=== PATIENT | male | born 1950 | race Caucasian/White ===

== ENCOUNTER 2020-02-01 06:54 | Outpatient (NON) | payer OTHER, MEDICARE, SELFPAY ==
[2020-02-01 19:55] LABS: SARS-CoV-2 RNA PCR Negative
== END 2020-02-01 06:55 ==
DX: R68.89 Other general symptoms and signs (principal); Z20.828 Contact with and (suspected) exposure to other viral communicable diseases
CPT/HCPCS: 87635; C9803; U0003

== ENCOUNTER 2020-08-30 16:10 | Emergency (ER) | payer MEDICARE, SELFPAY ==
[2020-08-30 16:19] VITALS: BP 122/76; PULSE 71; RESP 16; TEMP 37.3; O2SAT 97
--- NOTE | 2020-08-30 16:38 | ED.LOWEXIN ---
HPI - Extremity Injury (Lower) General Chief Complaint: Extremity Injury, Lower Stated Complaint: lt foot pain Source: patient and RN notes reviewed Mode of arrival: ambulatory History of Present Illness HPI Narrative: This is a 69-year-old male that presented to urgent care status post nail puncture wound to his left foot. According to patient he was walking in his driveway and stepped on a nail that went completely through his shoe. Patient does report of slight tenderness to the site he is up-to-date with his tetanus shot. The patient denies SOB, CP, palpitation, extremity numbness, lightheadedness, dizziness, constipation, diarrhea, chills, or fever. Positive for sensations and no neurovascular deficiencies to the affected foot. Related Data Home Medications Medication Instructions Recorded Confirmed amlodipine 08/30/20 atorvastatin 08/30/20 carvedilol 08/30/20 hydrochlorothiazide 08/30/20 rivaroxaban [Xarelto] mg 08/30/20 tamsulosin mg PO 08/30/20 Allergies Allergy/AdvReac Type Severity Reaction Status Date / Time lisinopril Allergy Swelling Verified 08/30/20 16:19 Review of Systems Review of Systems: Narrative: A 14 organ system Review of Systems was performed and pertinent positives included in the HPI, otherwise remaining ROS is negative. All systems reviewed & are unremarkable except as noted in HPI and below PMFSH Family History Family History (Updated 08/30/20 @ 16:41 by JONATHON BarthP-C) Other Family history non-contributory Exam Narrative: Exam Narrative: GENERAL: This is a well-nourished, well-developed patient, in no apparent distress. HEAD: normocephalic, atraumatic. EYES: PERRL. Sclera clear/white. Vision is grossly intact. EARS: External ears normal, auditory canals clear and without drainage, TMs normal without perforation. Hearing grossly intact. NOSE: External nose normal with no obvious nasal discharge, nares without redness, no rhinorrhea. THROAT: Mucous membranes moist, posterior pharynx clear. NECK: Neck supple, non-tender without lymphadenopathy, masses or thyromegaly. CARDIOVASCULAR: Regular rate and rhythm without murmurs, gallops, or rubs. RESPIRATORY: Clear to auscultation. Breath sounds equal bilaterally. No wheezes, rales, or rhonchi. GASTROINTESTINAL: Abdomen soft, non-tender, nondistended. Bowel sounds are active. No hepato-splenomegaly, or palpable masses. No guarding. SKIN: warm, intact with no suspicious lesions or rash, good texture and turgor. NEURO: awake, alert, and oriented to person, place and time. There were no obvious focal neurologic abnormalities. Steady gait EXTREMITIES: Normal range of motion. No edema. No calf tenderness. Negative Homans sign bilaterally. Small pinpoint puncture wound to the ball of foot, tender to touch, sensations positive BACK: Nontender without deformity or crepitance. No flank tenderness. Course Course Emergency Course: Clean foot applied Betadine and triple antibiotic ointment and wrapped with gauze in wrap Vital Signs Vital signs: Vital Signs Temperature 99.1 F 08/30/20 16:19 Pulse Rate 71 08/30/20 16:19 Respiratory Rate 16 08/30/20 16:19 Blood Pressure 122/76 08/30/20 16:19 Pulse Oximetry 97 08/30/20 16:19 Temperature 99.1 F 08/30/20 16:19 Pulse Rate 71 08/30/20 16:19 Respiratory Rate 16 08/30/20 16:19 Blood Pressure 122/76 08/30/20 16:19 Pulse Oximetry 97 08/30/20 16:19 Discharge Plan Discharge Clinical Impression: Puncture wound of skin from metal nail Patient Disposition: Home, Self-Care Condition: Stable Instructions: Antibiotic Form, Puncture Wound in the Foot (ED) Additional Instructions: 1. Follow up with your provider within 1-2 weeks 2. Take prescription medication as ordered Notify your provider of any signs and symptoms of infection: Fever Foul Odor Discharge Heat at the Site: Increase in Pain: Pus Redness and Swelling Expand
== END 2020-08-30 16:43 | disposition home or self-care (01) ==
PROVIDERS: Emergency Provider Nurse Practitioner; PCP Internal Medicine
DX: S91.332A Puncture wound without foreign body, left foot, initial encounter (principal); W45.0XXA Nail entering through skin, initial encounter
CPT/HCPCS: 99212; G0463

== ENCOUNTER 2023-01-17 08:21 | Emergency (ER) | payer MEDICARE, SELFPAY ==
--- NOTE | ~2023-01-17 | XR_ITS ---
EXAMINATION: XR knee LT 3V DATE: 01/17/2023 09:09 INDICATION: Left knee pain TECHNIQUE: Three views of the left knee were obtained. COMPARISON: None. FINDINGS: There is tricompartmental osteoarthritis, severe in the lateral compartment, moderate in th e patellofemoral compartment, and mild in the medial compartment. No fracture is identified. There is a moderate to large knee joint effusion. Soft tissues are unremarkable. IMPRESSION: 1. Osteoarthritis and knee joint effusion without acute osseous abnormality identified. Reviewed, dictated and finalized at location [facility] [employer] IMPRESSION: 1. Osteoarthritis and knee joint effusion without acute osseous abnormality jordon ntified.
[2023-01-17 08:53] VITALS: BP 98/57; PULSE 60; RESP 18; O2SAT 97
[2023-01-17 10:26] VITALS: BP 102/64; PULSE 60; RESP 18; O2SAT 98
--- NOTE | 2023-01-17 10:49 | ED.LOWEXIN ---
HPI - Extremity Injury (Lower) General Chief Complaint: Extremity Injury, Lower Stated Complaint: left knee pain, swollen Time Seen by Provider: 01/17/23 08:57 History of Present Illness HPI Narrative: This is a 72-year-old male, with history of AFib on Xarelto, who presents emergency department complaining of left knee pain and swelling for the past 2 days. The patient states yesterday, he was performing yd work, when he stepped on felt a sharp twinge in the knee. This persisted but he denies pops cracks naps or loss of strength. Today he noticed swelling inthe knee and increased pain he has no other complaints at this time. Related Data Home Medications Medication Instructions Recorded Confirmed amlodipine 5 mg tablet 5 mg PO DAILY 08/30/20 08/30/20 atorvastatin 20 mg tablet 20 mg PO DAILY 08/30/20 08/30/20 carvedilol 3.125 mg tablet 3.125 mg PO BID 08/30/20 08/30/20 hydrochlorothiazide 25 mg tablet 25 mg PO DAILY 08/30/20 08/30/20 rivaroxaban 20 mg tablet (Xarelto) 20 mg PO DAILY 08/30/20 08/30/20 tamsulosin 0.4 mg capsule 0.4 mg PO POST-TRANSFUSION 08/30/20 08/30/20 Allergies Allergy/AdvReac Type Severity Reaction Status Date / Time lisinopril Allergy Swelling Verified 01/17/23 08:54 Review of Systems Review of Systems: CONSTITUTIONAL: Denies fever, chills, or sweats. CARDIOVASCULAR: Denies chest pain, palpitations, or edema. RESPIRATORY: Denies cough or dyspnea. GENITOURINARY: Denies dysuria or hematuria. SKIN: Denies rash or itching. MUSCULOSKELETAL: Left knee pain Denies back pain, or myalgia. NEUROLOGIC: Denies headache, numbness, dizziness, or weakness. PSYCHIATRIC: Denies anxiety or depression. [facility] Past Medical History Medical History Afib Hypertension Surgical History Surgical History No significant past surgical history Family History Family History Other Family history non-contributory Social History Social History (Updated 01/18/23 @ 02:42 by Rolando Horton MD) Smoking status: Never smoker Alcohol intake: never Substance use: never Exam Narrative: GENERAL: Well-appearing, well-nourished, and in no acute distress. HEAD: Normocephalic, atraumatic. EYES: PERRLA and EOMI. CHEST: Clear to auscultation. No respiratory distress. No wheezes rales or rhonchi HEART: Regular rate and rhythm. No murmur heard. Normal peripheral pulses. EXTREMITIES: Mild swelling noted over the anterior aspect of the left knee, without erythema, induration or ecchymosis. Range of motion of the left knee limited by pain, though intact. There is no noted laxity with anterior-posterior drawer test or with valgus or varus pressure. Normal range of motion of all other joints. No edema. SKIN: Warm, dry, no rash. NEURO: No focal deficits. Alert and oriented x3. PSYCH: Normal mood and affect. Course Course Emergency Course: 10:52 - X-ray of the left knee demonstrates changes consistent with arthritis but is not concerning for fracture or dislocation. The patient's exam is not concerning for ligament tear. I suspect knee sprain. I advised the patient to manage conservatively with rice therapy. Discussed return and emergency precautions including signs/symptoms of Septic arthritis and neurovascular compromise. The patient voiced understanding and is comfortable with the plan. All questions answered to his satisfaction. Vital Signs Vital signs: Vital Signs Pulse Rate 60 01/17/23 08:53 Respiratory Rate 18 01/17/23 08:53 Blood Pressure 98/57 L 01/17/23 08:53 Pulse Oximetry 97 01/17/23 08:53 Pulse Rate 60 01/17/23 10:26 Respiratory Rate 18 01/17/23 10:26 Blood Pressure 102/64 01/17/23 10:26 Pulse Oximetry 98 01/17/23 10:26 MDM - Extremity Injury (Lower) MDM Narrative Medical decision lupe
[2023-01-17] MEDS: ACETAMINOPHEN 500 MG TABLET 1000 MG PO (11:08)
== END 2023-01-17 11:12 | disposition home or self-care (01) ==
PROVIDERS: Emergency Provider Preventive Medicine Aerospace Medicine; PCP Internal Medicine
DX: S83.92XA Sprain of unspecified site of left knee, initial encounter (principal); I48.91 Unspecified atrial fibrillation; I10 Essential (primary) hypertension; Z79.01 Long term (current) use of anticoagulants; X50.9XXA Other and unspecified overexertion or strenuous movements or postures, initial encounter; Y93.H2 Activity, gardening and landscaping
CPT/HCPCS: 73562; 99283; A9270